=== PATIENT | male | born 1965 | race Caucasian/White ===

== ENCOUNTER 2018-03-14 18:31 | Emergency (ER) | payer BC ==
[2018-03-14 19:35] VITALS: BP 141/94
--- NOTE | 2018-03-14 20:27 | UC ---
Respiratory Complaint HPI - HPI Summary HPI Summary: 2 DAYS OF PRODUCTIVE COUGH, NASAL DISCHARGE, SUBJECTIVE FEVER AND DIZZINESS. HAS BEEN VERY FATIGUED. NO NAUSEA/VOMITING. NO EAR PAIN. STATES HE GETS PNEUMONIA EASILY. - History of Current Complaint Chief Complaint: UCRespiratory Stated Complaint: RESP COMPLAINT Time Seen by Provider: 03/14/18 19:54 Hx Obtained From: Patient, Family/Client Program Manager - Onset/Duration: Gradual Onset, Lasting Days, Still Present Timing: Constant Severity Initially: Moderate Severity Currently: Moderate Pain Intensity: 0 Pain Scale Used: 0-10 Numeric Character: Cough: Productive Aggravating Factors: Nothing Alleviating Factors: Nothing Associated Signs And Symptoms: Positive: Fever, Wheezing, URI, Nasal Congestion. Negative: Dyspnea - Allergies/Home Medications Allergies/Adverse Reactions: Allergies Allergy/AdvReac Type Severity Reaction Status Date / Time amoxicillin AdvReac Nausea And Verified 03/14/18 19:35 Vomiting doxycycline AdvReac Unknown Verified 03/14/18 19:35 Reaction Details Home Medications: Home Medications Omeprazole CAP* [Prilosec CAP* 20 MG] 20 mg PO BEDTIME 03/14/18 [History Confirmed 03/14/18] PMH/Surg Hx/FS Hx/Imm Hx Endocrine History: Hypothyroidism Respiratory History: Asthma Other Cancer History: HODGKINS LYMPHOMA - Surgical History Surgical History: Yes Surgery Procedure, Year, and Place: Rt hand, reconstruction. Left knee arthroscopy. rt chest biopsy. spinal fusion for stenosis - Family History Known Family History: Negative: Hypertension - Social History Alcohol Use: None Substance Use Type: None Smoking Status (MU): Former Smoker Review of Systems Constitutional: Fever, Fatigue Respiratory: Cough Cardiovascular: Negative Gastrointestinal: Negative All Other Systems Reviewed And Are Negative: Yes Physical Exam Triage Information Reviewed: Yes Appearance: Well-Appearing, No Pain Distress, Well-Nourished Vital Signs: Initial Vital Signs Temp 98.6 F 03/14/18 19:28 Pulse 95 03/14/18 19:28 Resp 16 03/14/18 19:28 BP 141/94 03/14/18 19:28 Pulse Ox 100 03/14/18 19:28 Vital Signs Reviewed: Yes Eyes: Positive: Conjunctiva Clear ENT: Positive: Hearing grossly normal, Pharynx normal, TMs normal Neck: Positive: Supple, Nontender, No Lymphadenopathy Respiratory: Positive: No respiratory distress, No accessory muscle use, Other: - OCCASIONAL COARSE BREATH SOUND. Negative: Decreased breath sounds, Crackles, Rhonchi, Wheezing Cardiovascular Exam: Normal Abdomen Description: Positive: Soft Musculoskeletal: Positive: No Edema Neurological: Positive: Alert Psychological: Positive: Normal Response To Family, Age Appropriate Behavior Skin: Negative: rashes UC Diagnostic Evaluation - Laboratory O2 Sat by Pulse Oximetry: 100 Respiratory Course/Dx - Differential Dx/Diagnosis Provider Diagnoses: ACUTE BRONCHITIS Discharge - Sign-Out/Discharge Documenting (check all that apply): Patient Departure All imaging exams completed and their final reports reviewed: No Studies - Discharge Plan Condition: Stable Disposition: HOME Prescriptions: Azithromycin 500 mg PO DAILY #5 tab Patient Education Materials: Acute Bronchitis (ED) Referrals: Todd Gamez MD [Primary Care Provider] - If Needed Additional Instructions: YOUR SYMPTOMS ARE LIKELY VIRALLY MEDIATED AND SHOULD RESOLVE ON THEIR OWN WITH TIME. IF YOU DO NOT START TO IMPROVE OVER THE NEXT FEW DAYS GO AHEAD AND FILL RX FOR ANTIBIOTICS. REST, HYDRATE, OTC MEDS NEEDED. SEEK FOLLOW-UP IF YOU ARE NOT IMPROVING OVER THE NEXT 1-2 WEEKS. YOUR BLOOD PRESSURE WAS ELEVATED TODAY (141/94). THIS MAY BE DUE TO YOUR ACUTE CONDITION. MONITOR AND FOLLOW-UP WITH YOUR PCP WITHIN 4 WEEKS IF IT HAS NOT RETURNED TO NORMAL. - Billing Disposition and Condition Condition: STABLE Disposition: Home
== END 2018-03-14 20:20 | disposition home or self-care (01) ==
LOC: UCEAST 18:31
DX: J20.9 Acute bronchitis, unspecified (principal); Z88.0 Allergy status to penicillin; Z88.1 Allergy status to other antibiotic agents; C81.90 Hodgkin lymphoma, unspecified, unspecified site; Z87.891 Personal history of nicotine dependence
CPT/HCPCS: 99212; G0463

== ENCOUNTER → 2018-07-03 19:20 | Emergency (ER) | payer BC ==
[2018-07-03 19:42] VITALS: BP 144/71
--- OUTSIDE RECORDS SUMMARY | 2018-07-03 19:59 | XMS REPORT ---
:1965 External Reference #:[id number] Author Organization [facility] Address [address] [place] [address] Phone [phone] Care Team Providers Name Role Phone Todd Gamez MD Care Team Information [employer] Instructor Unavailable Todd Gamez MD Primary Care Physician Unavailable Payers Type Date Identification Numbers Payment Provider Subscriber Commercial Effective: Policy Number: [id number] BC/BS Of [employer] Erik Gabriel 2017 Group Number: [id number] [address] [address] PayID: [id number] [place] [address] Problems Description No Information Family History Date Family Member(s) Problem(s) Comments Mother No Current Problems Social History Type Date Description Comments Smoking Patient is a former smoker Allergies, Adverse Reactions, Alerts Date Description Reaction Status Severity Comments 08/30/2017 Amoxicillin GI issues active 08/30/2017 Doxycycline severe blisters active Medications Medication Date Status Form Strength Qnty SIG Indications Ordering Provider Levothyroxine / Active Tablets 75mcg 30tabs 1 by Todd Montemayor Sodium 0000 mouth Vera every day MD Hydrocodone-Danyel / Active Tablets 7.5-325mg 1 by Unknown taminophen 0000 mouth every 6 hours as needed Prilosec OTC / Active Tablets DR 20mg 1 by Unknown 0000 mouth every day Ibuprofen / Active Tablets 600mg 1 tab by Unknown 0000 mouth every 8 hours as needed pain. take with food Gabapentin / Active Capsules 100mg 1cap at Unknown 0000 lunch ,2caps at night Carafate / Hx Tablets 1gm take 1 Unknown 0000 - tablet by 06/11/ mouth 4 2018 times per day before meals and at bedtime Vital Signs Date Vital Result Comment 06/11/2018 BP Systolic 122 mmHg BP Diastolic 66 mmHg Heart Rate 84 /min Body Temperature 97.1 F Respiratory Rate 17 /min Height 73 inches 6'1" Weight 192.00 lb BMI (Body Mass Index) 25.3 kg/m2 08/30/2017 BP Systolic 128 mmHg BP Diastolic 72 mmHg Heart Rate 94 /min Body Temperature 98.1 F Respiratory Rate 16 /min Height 73 inches 6'1" Weight 191.00 lb BMI (Body Mass Index) 25.2 kg/m2 Right Visual Acuity Distance 20/20 Left Visual Acuity Distance 20/20 Results Test Date Test Result H/L Range Note Comprehensive Metabolic Prof 09/11/2017 Sodium 141 mEq/L 134-149 Potassium 3.8 mEq/L 3.6-5.5 Chloride 100 mEq/L 94-112 Carbon Dioxide 27 mEq/L 21-32 Glucose 100 mg/dL 70-105 BUN 12 mg/dL 6-26 Creatinine 1.0 mg/dL 0.6-1.4 BUN/Creat Ratio 12.0 CALC 8.0-36.0 Calcium 9.2 mg/dL 8.6-10.2 Total Protein 6.7 g/dL 6.4-8.3 Albumin 4.4 g/dL 3.8-5.5 Globulin 2.3 g/dL 2.0-4.8 A/G Ratio 1.9 CALC 0.6-2.3 Alk. Phosphatase 69 U/L 22-95 Alt (SGPT) 14 U/L 7-35 Ast (Sgot) 17 U/L 5-34 Total Bilirubin 0.6 mg/dL 0.2-1.3 GFR Non- >60 ml/min/1.73m^ >=60 GFR >60 ml/min/1.73m^ >=60 Lipid Profile 09/11/2017 Cholesterol 240 mg/dL High 120-200 Triglycerides 190 mg/dL 30-200 HDL Cholesterol 40 mg/dL 30-70 LDL (Calculated) 162 CALC High 0-129 VLDL Cholesterol 38 mg/dL 0-50 HDL Risk Factor 6.0 CALC High 0.0-4.4 Laboratory test finding 09/11/2017 TSH 0.99 mIU/L 0.50-6.00 CBC Manual Diff-Fma 09/11/2017 WBC 6.38 4.0-10.0 RBC 4.38 3.93-6.0 Hemoglobin (Fma/CMC/CTX) 12.2 g/dL 12.0-17.0 Hematocrit (Fma/CMC/CTX) 34.5 % Low 35.0-50.0 Mean Corpuscular Vol 78.8 fL Low 80-95 Mean Corpuscular Hemoglobin 27.9 pg 25.6-32.2 Mean Corpuscular Hemo Concen 35.4 g/dL 32.2-36.0 Platelets 322 10^3/ul 163-400 RDW 12.9 11.6-13.7 Mean Platelet Volume 9.3 fL Low 9.4-12.4 Neutrophil 57 Band 3 Lymphocytes 28 Monocyte 7 Eosinophils 4 Atypical Lymph 1 Microcytosis (Fma/CMC/Centrex) slight Z#Comment plt normal Procedures Date CPT Code Description Status 08/30/2017 12911 Vision Test- screening test of visual acuity, Completed quantitative, bila Encounters Type Date Location Provider CPT E/M Dx Office Visit 08/30/2017 1:30p [place] [id number] Z00.00 E89.0 I35.8 Plan of Care 06/11/2018 - Todd Gamez MDI35.2 Nonrheumatic aortic (valve) stenosis with insufficiencyAllComments:~B_~U_Medication Management~b_~u_ Patient Understands medications he's taking? Yes No Are there Barriers to Adherence? Yes No Has the patient been asked about herbal supplements and therapies, and OTC meds? Yes No
== END | disposition left against medical advice (07) ==
LOC: ED 19:20
DX: Z76.0 Encounter for issue of repeat prescription (principal); Z53.21 Procedure and treatment not carried out due to patient leaving prior to being seen by health care provider

== ENCOUNTER 2024-06-05 13:22 | Observation (INO) ==
[2024-06-05] MEDS: Iodixanol 320 (CONTRAST) 100 ML SDV IV ONE (13:44)
[2024-06-05 14:10] LABS: ABS Basophils 0.1 10^3/uL (0.0-0.1); ABS Eosinophils 0.1 10^3/uL (0.0-0.5); ABS Monocytes 1.1 10^3/uL (0.0-1.1); ABS Nucleated RBC 0.01 10^3/ul; Eosinophil % 0.8 %; Hematocrit 40.7 % (38-53); Hemoglobin 14.5 g/dL (13.2-16.3); Lymphocyte % 24.3 %; Mean Corpuscular Hemoglobin 29.8 pg (27-33); Mean Corpuscular Hgb Conc 35.5 g/dL (31-36); Mean Corpuscular Volume 83.8 fL (80-97); Mean Platelet Volume 8.4 fL (7.5-11.2); Nucleated Red Blood Cells % 0.1 %/100WBC (0.0-0.8); Platelet Count 403 10^3/uL (150-450); Red Blood Count 4.86 10^6/uL (4.06-5.63); Red Cell Distribution Width 13.3 % (12-17); White Blood Count 12.3 10^3/uL (3.6-10.2)
[2024-06-05 14:18] LABS: Activated Partial Thrombo Time 42.3 seconds (26.0-38.0); INR 1.38 (0.85-1.14)
[2024-06-05 14:31] LABS: ALT 21 U/L (7-52); Albumin 5.1 g/dL (3.2-5.2); Albumin/Globulin Ratio 1.8 (1-3); Alkaline Phosphatase 92 U/L (35-149); Anion Gap 10 mmol/L (2-16); Blood Urea Nitrogen 25 mg/dL (6-24); CO2 Carbon Dioxide 29 mmol/L (22-32); Calcium 9.8 mg/dL (8.6-10.3); Chloride 98 mmol/L (101-111); Cholesterol 265 mg/dL; Creatinine, Serum 1.26 mg/dL (0.67-1.17); Globulin 2.9 g/dL (2-4); Glucose 93 mg/dL (70-100); HDL Cholesterol 42.9 mg/dL; Sodium 137 mmol/L (135-145); Total Bilirubin 0.1 mg/dL (0.2-1.0); Triglycerides 817 mg/dL; eGFR CKD-EPI 66.5 (>60)
[2024-06-05 14:49] LABS: LDL Cholesterol Direct 139 mg/dL
[2024-06-05 16:18] LABS: Potassium Redraw 3.9 mmol/L (3.5-5.0)
[2024-06-05] MEDS ORDERED: Heparin 5000 UNITS/ML 1 mL VIAL IV SCH (23:45)
[2024-06-06 00:19] LABS: TSH Ultra Thyroid Stim Horm 2.07 mcIU/mL (0.34-5.60)
[2024-06-06] MEDS: Heparin DRIP 25,000 UNITS BAG 25,000 UNITS/250 ML BAG IV SCH (00:42)
[2024-06-06] MEDS: Gadoteridol (CONTRAST) 279.3 MG/ML 10 ML IV ONE (00:43)
[2024-06-06 01:04] LABS: Activated Partial Thrombo Time 38.8 seconds (26.0-38.0); INR 1.48 (0.85-1.14)
[2024-06-06] MEDS: HYDROcodone/ACETAMIN 5/325 mg TAB PO PRN (01:51)
[2024-06-06 07:20] LABS: ABS Basophils 0.1 10^3/uL (0.0-0.1); ABS Eosinophils 0.1 10^3/uL (0.0-0.5); ABS Neutrophils 5.2 10^3/uL (1.5-7.6); Eosinophil % 1.4 %; Hematocrit 37.7 % (38-53); Hemoglobin 13.1 g/dL (13.2-16.3); Mean Corpuscular Hemoglobin 28.7 pg (27-33); Mean Corpuscular Hgb Conc 34.7 g/dL (31-36); Mean Corpuscular Volume 82.7 fL (80-97); Mean Platelet Volume 8.4 fL (7.5-11.2); Platelet Count 337 10^3/uL (150-450); Red Blood Count 4.55 10^6/uL (4.06-5.63); Red Cell Distribution Width 13.3 % (12-17); White Blood Count 8.4 10^3/uL (3.6-10.2)
[2024-06-06] MEDS: Lidocaine PATCH 5% PATCH TRANSDERM SCH (08:03)
[2024-06-06] MEDS: Aspirin EC 81 mg TAB.EC (enteric coated) PO SCH (08:03)
[2024-06-06 09:55] LABS: Calcium 9.1 mg/dL (8.6-10.3); Creatinine, Serum 1.01 mg/dL (0.67-1.17); Magnesium 2.1 mg/dL (1.9-2.7); eGFR CKD-EPI 86.7 (>60)
[2024-06-06 15:03] LABS: Activated Partial Thrombo Time 67.3 seconds (26.0-38.0); INR 1.39 (0.85-1.14)
[2024-06-06] MEDS ORDERED: Sulfur Hexaflouride MICROSPHR 25 MG VIAL IV PRN (15:27)
[2024-06-06] MEDS: Warfarin DAILY REMINDER **NOTE FOLLOW UP SCH (17:19)
[2024-06-06] MEDS ORDERED: Warfarin per PHARMACY **NOTE FOLLOW UP SCH (19:00)
[2024-06-06] MEDS: Lactated Ringers 1000 ml BAG 500 ML IV ONE (22:13)
[2024-06-07 06:12] LABS: ABS Basophils 0.1 10^3/uL (0.0-0.1); ABS Eosinophils 0.1 10^3/uL (0.0-0.5); ABS Lymphocytes 1.8 10^3/uL (1.0-4.8); ABS Monocytes 0.8 10^3/uL (0.0-1.1); ABS Nucleated RBC 0.01 10^3/ul; Eosinophil % 1.7 %; Hematocrit 39.7 % (38-53); Hemoglobin 13.4 g/dL (13.2-16.3); Lymphocyte % 23.1 %; Mean Corpuscular Hemoglobin 28.1 pg (27-33); Mean Corpuscular Hgb Conc 33.7 g/dL (31-36); Mean Corpuscular Volume 83.3 fL (80-97); Mean Platelet Volume 8.2 fL (7.5-11.2); Nucleated Red Blood Cells % 0.1 %/100WBC (0.0-0.8); Platelet Count 333 10^3/uL (150-450); Red Blood Count 4.77 10^6/uL (4.06-5.63); Red Cell Distribution Width 13.5 % (12-17); White Blood Count 7.7 10^3/uL (3.6-10.2)
[2024-06-07 06:25] LABS: Activated Partial Thrombo Time 79.9 seconds (26.0-38.0); INR 1.79 (0.85-1.14)
[2024-06-07 06:27] LABS: Calcium 9.4 mg/dL (8.6-10.3); Creatinine, Serum 0.91 mg/dL (0.67-1.17); Magnesium 1.9 mg/dL (1.9-2.7); Potassium 3.8 mmol/L (3.5-5.0); eGFR CKD-EPI 98.3 (>60)
[2024-06-07 10:07] VITALS: BP 119/78
== END 2024-06-07 11:10 | disposition home or self-care (01) ==
LOC: ED 13:22 → EDHOLD 13:22 → MEDTELE 06-06 02:04
PROVIDERS: ADMIT Internal Medicine; ATTEND Hospitalist